=== PATIENT | female | born 1940 | race Caucasian/White ===

== ENCOUNTER 2020-01-16 07:34 | Outpatient (CLI) | payer MEDICARE, OTHER ==
[2020-01-16 14:41] LABS: INR-International Normal Ratio 0.9
[2020-01-16 15:04] LABS: #Basophils 0.1 thou/uL (0.0-0.2); #Eosinphils 0.1 thou/uL (0.0-0.7); #Lymphocytes 2.9 thou/uL (1.20-3.40); #Monocytes 0.8 thou/uL (0.11-0.59); #Neutrophils 3.8 thou/uL (1.40-6.50); %Basophils 1.1 % (0.0-1.0); %Eosinophils 0.9 % (0.0-10.0); %Monocytes 10.7 % (0.0-10.0); %Neutrophils 49.2 % (42.0-75.0); Hemoglobin 13.9 g/dL (12.0-16.0); Mean Corpuscular HGB CONC 34.4 g/dL (32.0-36.0); Mean Corpuscular Hemoglobin 35.3 pg (27.0-31.0); Mean Platelet Volume 7.3 fL (7.4-10.4); Platelet Count 324 thou/uL (130-400); RBC Distribution Width 10.8 % (11.5-14.5); Red Blood Cell (RBC) Count 3.93 mill/uL (4.20-5.40); White Blood Cell (WBC) Count 7.7 thou/uL (4.8-10.8)
[2020-01-16 15:23] LABS: Anion Gap 14 mmol/L (10-20); BUN (Urea Nitrogen) 18 mg/dL (9.8-20.1); Calc. Creatinine Clearance 0 mL/min (70-130); Calcium 9.4 mg/dL (7.8-10.44); Carbon Dioxide 25 mmol/L (23-31); Chloride 103 mmol/L (98-107); Estimated GFR-MDRD 64; Glucose 92 mg/dL (83-110); Potassium 4.5 mmol/L (3.5-5.1); Sodium 137 mmol/L (136-145)
[2020-01-16 16:04] LABS: Bacteria/HPF None Seen HPF (None Seen); Bilirubin Negative (Negative); Blood, Urine Negative (Negative); Clarity Clear (Clear); Glucose, Urine (Dipstick) Normal (Negative); Ketone, Urine Negative (Negative); Leukocyte 25 Leu/uL (Negative); Nitrite Negative (Negative); Protein, Urine (Dipstick) Negative (Neg-Trace); RBC/HPF 0-3 HPF (0-3); Specific Gravity, Urine 1.017 (1.002-1.036); Squamous Epithelial 0-3 HPF (0-3); Urobilinogen Normal mg/dL (Less than 2); WBC/HPF 0-3 HPF (0-3); pH, Urine 6.5 (5.0-9.0)
--- NOTE | 2020-01-16 18:13 | EKG ---
Test Reason : Blood Pressure : / mmHG Vent. Rate : 059 BPM Atrial Rate : 059 BPM P-R Int : 168 ms QRS Dur : 100 ms QT Int : 410 ms P-R-T Axes : 040 -18 040 degrees QTc Int : 405 ms Sinus bradycardia Cannot rule out Inferior infarct , age undetermined Abnormal ECG Confirmed by DR. Federico MCNAMARA ([id number]) on 01/16/2020 6:12:59 PM Referred By: RYAN Confirmed By:DR. Federico MCNAMARA
[2020-01-17 12:25] LABS: SARS-CoV-2 MS2 Positive; SARS-CoV-2 N Gene Negative; SARS-CoV-2 S Gene Negative; SARS-CoV-2 by NAA Not Detected (NotDetected); SARS-CoV-2 orf1ab Negative
== END 2020-01-16 07:35 | disposition home or self-care (01) ==
LOC: LABBT 07:34
PROVIDERS: ATTEND Orthopaedic Surgery
DX: Z01.818 Encounter for other preprocedural examination (principal); Z20.828 Contact with and (suspected) exposure to other viral communicable diseases; M16.12 Unilateral primary osteoarthritis, left hip
CPT/HCPCS: 80048; 81001; 85025; 85610; 87081; 93005; U0003; 87635; 93010

== ENCOUNTER 2020-01-16 10:30 | Inpatient (IN) | payer MEDICARE, OTHER ==
[2020-01-17 08:34] VITALS: BMI 29.2
[2020-01-21] MEDS ORDERED: Sodium Chloride 0.9% 100 ML ONE (08:39)
[2020-01-21] MEDS ORDERED: Vancomycin 1 GM/200 ML BAG ONE (08:39)
[2020-01-21] MEDS ORDERED: Levofloxacin 500 mg/D5W 100 ml Premix Bag ONE (08:39)
[2020-01-21] MEDS ORDERED: Tranexamic Acid 1,000 MG/10 ML VIAL ONE (08:39)
[2020-01-21] MEDS ORDERED: Acetaminophen 325 MG TAB PO PRN (09:25)
[2020-01-21] MEDS ORDERED: traMADol HCl 50 MG TAB PO PRN ×3 (09:25→10:15)
[2020-01-21] MEDS ORDERED: diphenhydrAMINE 25 MG CAP PO PRN (09:25)
[2020-01-21] MEDS ORDERED: Promethazine HCl 25 MG/ML VIAL IM PRN ×3 (09:25→11:52)
[2020-01-21] MEDS ORDERED: HYDROcodone/Acetaminophen 10/325 mg Tablet PO PRN ×2 (09:25)
[2020-01-21] MEDS ORDERED: Zolpidem Tartrate 5 MG TAB PO PRN ×2 (09:25→10:15)
[2020-01-21] MEDS ORDERED: Ondansetron PF 4 MG/2 ML Vial IVP PRN ×2 (09:25→10:15)
[2020-01-21] MEDS ORDERED: Diphenoxylate HCl/Atropine Tablet PO PRN (09:27)
[2020-01-21] MEDS ORDERED: Fentanyl 100 MCG/2 ML VIAL ONE ×2 (09:32→10:18)
[2020-01-21] MEDS ORDERED: Midazolam HCl 2 mg/2 ml Vial ONE (09:32)
[2020-01-21] MEDS ORDERED: Dexamethasone 20 MG/5 ML VIAL ONE (09:42)
[2020-01-21] MEDS ORDERED: Lidocaine 1.5% w/Epi 1:200K 30 ML VIAL (Epid Use) ONE (09:42)
[2020-01-21] MEDS ORDERED: Lidocaine 1% PF 5 ML VIAL ONE (09:42)
[2020-01-21] MEDS ORDERED: Rocuronium Bromide 10 MG/ML (10ML VIAL) ONE (09:42)
[2020-01-21] MEDS ORDERED: Ondansetron PF 4 MG/2 ML Vial ONE ×2 (09:42→12:42)
[2020-01-21] MEDS ORDERED: Ketorolac Tromethamine 30 MG/ML VIAL ONE (09:42)
[2020-01-21] MEDS ORDERED: PROPOFOL 200 MG/20 ML VIAL ONE (09:42)
[2020-01-21] MEDS ORDERED: Glycopyrrolate 0.2 MG/ML 5 ML SYRINGE ONE (09:42)
[2020-01-21] MEDS ORDERED: Bupivacaine/Epinephrine 0.25% 30 ML VIAL ONE (10:08)
[2020-01-21] MEDS ORDERED: Naloxone HCl 0.4 mg/ml Vial IVP PRN (10:15)
[2020-01-21] MEDS ORDERED: diphenhydrAMINE 50 MG/ML VIAL IVP PRN (10:15)
[2020-01-21] MEDS ORDERED: Promethazine HCl 25 MG SUPP PR PRN (10:15)
[2020-01-21] MEDS ORDERED: diphenhydrAMINE 50 MG/ML VIAL IM PRN (10:15)
[2020-01-21] MEDS ORDERED: Hydrocerin (Eucerin) Cream 120 gm Jar TOP PRN (10:15)
[2020-01-21] MEDS ORDERED: Naloxone HCl 0.4 mg/ml Vial IV PRN (10:15)
[2020-01-21] MEDS ORDERED: Bupivacaine 0.25% 10 ML VIAL EPIDURAL PRN (10:15)
[2020-01-21] MEDS ORDERED: Promethazine HCl 25 MG/ML VIAL SLOW IVP PRN (11:52)
[2020-01-21] MEDS ORDERED: HYDROmorphone 2 MG/ML VIAL SLOW IVP PRN (11:52)
[2020-01-21] MEDS: Sodium Chloride 0.9% 1,000 ML IV SCH ×2 (12:38→23:38)
[2020-01-21] MEDS: Ketorolac Tromethamine 30 MG/ML VIAL IVP SCH ×3 (12:39→23:34)
--- NOTE | 2020-01-21 13:21 | RAD ---
XR Hip Lt 2-3 View HISTORY: Postop total hip replacement COMPARISON: None. FINDINGS: There are recent postoperative changes of left total hip replacement in good position and a lignment. Soft tissue air is present.
[2020-01-21] MEDS: diphenhydrAMINE 25 MG CAP PO PRN ×3 (15:58→22:14)
--- OUTSIDE RECORDS SUMMARY | 2020-01-21 16:08 | XMS | Patient Health Record ---
:[address] 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 Problem Lumbar M54.16 Active 037493412 radiculopathy Problem Nicotine F17.200 Active 05584346 dependence, unspecified, uncomplicated Problem Primary M16.12 Active 707763259075898 osteoarthritis of left hip Problem Essential tremor G25.0 Active 853885031 Problem Benign positional H81.10 Active 433591126 vertigo Problem Primary localized M16.12 Active 449740364 osteoarthritis of left hip Problem Lumbar M47.816 Active 561942220 spondylosis ALLERGIES Allergen (clinical drug Drug/Non Drug Allergy Reaction Allergy Type Onset Date Status ingredient) documented on EMR Penicillin Unknown Drug Allergy Active ENCOUNTERS from 1940 to 2020-01-21 Encounter Location Date Provider Diagnosis [facility] [address] Jan, jR [address] [place] [address] IMMUNIZATIONS No Information SOCIAL HISTORY Tobacco Use: Social History Observation Description Date Details (start date - stop date) Current Smoker Sex Assigned At : Social History Observation Description Sex Assigned At Unknown Other Tobacco Use/Exposure Question Answer Notes Are you an other tobacco user? No Smoking Question Answer Notes Are you a: current smoker REASON FOR REFERRAL from 1940 to 2020-01-21 Reason ccm document Referring Provider First Name Rony Referring Provider Last Name Elena Referring Provider Specialty Orthopedic Surgery Referring Provider email [email or web address] Referred Provider [facility], Medical Records VITAL SIGNS from 1940 to 2020-01-21 Weight 170 lbs Jan, Height 64 in Jan, BMI 29.18 kg/m2 Jan, Heart Rate 66 /min Dec, Temperature 97.7 degrees Fahrenheit May, Oximetry 98 % May, Blood pressure systolic 124 mm Hg Dec, Blood pressure diastolic 81 mm Hg Dec, MEDICATIONS Medication SIG (Take, Route, Start Date End Date Status Frequency, Duration) Omeprazole 20 MG 1 capsules Orally bid Ac tive Zyrtec Allergy 10 MG 1 tablet Orally Once a day Active Simvastatin Active Trazodone HCl 50 MG 1-2 tablet at bedtime as Active needed Orally Once a day Mycophenolate Mofetil 500 MG 2 tablets Orally Twice a Active day Myrbetriq 25 MG Orally Active Calcium 600 MG 1 tablet Orally Twice a Ac tive day [place]bon[place] 3 1200 MG 1 capsule Orally Once a A ctive day Hydroxychloroquine Sulfate 200 TAKE ONE (1) TABLET (200 Active MG MG TOTAL) BY MOUTH 2 (TWO) TIMES DAILY (INDICATIONS_ CONTINUATION OF SAME INDICATION, RHEUMATOID ARTHRITIS). 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, tremors, low back pain-spinal stenosis, Lumbar MRI results, left hip chronic pain-Treated in Mario/nx, sores around mouth, Medications verified by reviewing bottles brought in by patient today MEDICAL (GENERAL) HISTORY Type Description Date Medical History polymyositis Medical History neurocardiogenic syncope Medical History GERD Medical History Dry eyes Medical History Insomnia Medical History hypercholesterolemia Medical History urinary incontinence Surgical History hysterectomy Surgical History oophorectomy Surgical History R knee surgery 2009 Surgical History bunionectomy R foot 2002 Goals Section No Information Health Concerns No Information MEDICAL EQUIPMENT No Information MENTAL STATUS No Information FUNCTIONAL STATUS No Information ASSESSMENTS Encounter Date Diagnosis Notes Jan, Nicotine dependence, unspecified, uncomp licated (ICD-10 - F17.200) Nov, Lumbar spondylosis (ICD-10 - M47.816) Apr, Essential tremor (ICD-10 - G25.0) Nov, Lumbar stenosis with neurogenic claudica tion (ICD-10 - M48.062) Nov, Primary localized osteoarthritis of left hip (ICD-10 - M16.12) May, 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 ) Dec, Foraminal stenosis of lumbar region (ICD -10 - M99.83) Nov, Foraminal stenosis of lumbar region (ICD -10 - M99.83) Nov, Nicotine dependence, unspecified, uncomp licated (ICD-10 - F17.200) Dec, Lumbar spondylosis (ICD-10 - M47.816) August, Primary osteoarthritis of left hip (ICD- 10 - M16.12) Oct, Foraminal stenosis of lumbar region (ICD -10 - M99.83) Nov, Primary localized osteoarthritis of left hip (ICD-10 - M16.12) Dec, Primary localized osteoarthritis of left hip (ICD-10 - M16.12) Nov, Acute lumbar radiculopathy (ICD-10 - M54 .10) Sep, Primary osteoarthritis of left hip (ICD- 10 - M16.12) Sep, Lumbar radiculopathy (ICD-10 - M54.16) Dec, Acute lumbar radiculopathy (ICD-10 - M54 .10) Nov, Primary osteoarthritis of left hip (ICD- 10 - M16.12) Oct, Acute lumbar radiculopathy (ICD-10 - M54 .10) Jan, Primary osteoarthritis of left hip (ICD- 10 - M16.12) Nov, Acute lumbar radiculopathy (ICD-10 - M54 .10) May, Impetigo (ICD-10 - L01.00) Apr, Benign positional vertigo (ICD-10 - H81. 10) August, Lumbar radiculopathy (ICD-10 - M54.16) Nov, Foraminal stenosis of lumbar region (ICD -10 - M99.83) Oct, Primary localized osteoarthritis of left hip (ICD-10 - M16.12) PLAN OF TREATMENT Treatment Notes Assessment Notes Clinical Notes Primary localized osteoarthritis of Patient Educated with: Matti ischarge left hip Instruct.pdf (Discharge Instruct.pdf) Nicotine dependence, unspecified, Counseled patient on tobac co uncomplicated cessation and the benefits of doing so during the pre- and post-operative period. Some of these benefits include better cardiac and pulmonary function, better bone and wound healing, decreased risk of osteoporosis, and decreased risk of post-operative infections. Encouraged the patient to follow up with their primary care physician for further tobacco cessation information and counseling. Essential tremor I discussed a referral to audiology to address the positional vertigo, but she did not feel it was significant adenopathy this point to pursue this. We will monitor the tremor and consider treatment options if it becomes more bothersome. Nicotine dependence, unspecified, Counseled patient on tobac co uncomplicated cessation and the benefits of doing so during the pre- and post-operative period. Some of these benefits include better cardiac and pulmonary function, better bone and wound healing, decreased risk of osteoporosis, and decreased risk of post-operative infections. Encouraged the patient to follow up with their primary care physician for further tobacco cessation information and counseling. Counseled patient on tobacco cessation and the benefits of doing so during the pre- and post-operative period. Some of these benefits include better cardiac and pulmonary function, better bone and wound healing, decreased risk of osteoporosis, and decreased risk of post-operative infections. Encouraged the patient to follow up with their primary care physician for further tobacco cessation information and counseling. Primary localized osteoarthritis of Patient Educated with: D ischarge left hip Instruct.pdf (Discharge Instruct.pdf) Patient Educated with: Discharge Instruct.pdf (Discharge Instruct.pdf) Primary localized osteoarthritis of Patient Educated with: D ischarge left hip Instruct.pdf (Discharge Instruct.pdf) Patient Educated with: Discharge Instruct.pdf (Discharge Instruct.pdf) Primary localized osteoarthritis of Patient Educated with: Matti ischarge left hip Instruct.pdf (Discharge Instruct.pdf) Patient Educated with: Discharge Instruct.pdf (Discharge Instruct.pdf) Primary osteoarthritis of left hip Discussed conservative ca re with the patient: NSAIDs, bracing, strengthening & stretching, weight reduction, injections. I informed the patient that the care home solution for their OA would be a joint replacement. The patient will begin taking a consistent anti-inflammatory and continue evaluating her hip pain. Due to several medications the patient is currently utilizing, she will need to meet [facility] Dr. 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 Follow-up as needed as symptoms persist or worsenWe discussed the risk of infection, stiffness, nerve or blood vessel damage. Infection may be treated with surgery and antibiotics or full revision. The risk of fracture and dislocation was discussed. is a possibility for blood clot or infection. Leg length inequality can occur. Informed consent was given. Lumbar radiculopathy Patient with mild to moderate stenosis and lumbar degenerative disc disease. She's not hurting today so isolating her pain source is difficult but I suspect she does have some intermittent radicular symptoms. Hold on any interventional treatment. I did provide her a copy of home back exercises and stretches. She may follow-up as needed. Primary osteoarthritis of left hip Discussed conservative ca re with the patient: NSAIDs, bracing, strengthening & stretching, weight reduction, injections. I informed the patient that the care home solution for their OA would be a joint replacement. The patient will begin taking a consistent anti-inflammatory and continue evaluating her hip pain. Due to several medications the patient is currently utilizing, she will need to meet [facility] Dr. 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 Follow-up as needed as symptoms persist or worsenWe discussed the risk of infection, stiffness, nerve or blood vessel damage. Infection may be treated with surgery and antibiotics or full revision. The risk of fracture and dislocation was discussed. is a possibility for blood clot or infection. Leg length inequality can occur. Informed consent was given. Lumbar radiculopathy Schedule MRI of the lumbar spine. The patient will be called with results. Treatment Notes Test Name Order Date XR Hip Lt 2-3 View 2020-01-21 XR Hip Lt 2-3 View 2020-01-21 Referrals Referral Date Details left hip pain, Rony aPrker, [address], [place], [address], 2016-09-01 2016-09-01, MRI L-Spine [facility] 09/01/2016 2016-09-28 2016-09-28, low back pain-sp inal stenosis, Adal Rodriguez, [address], [place], [place], [address], 2019-11-27 2019-11-27, left hip arthro rina. evaluate for replacement left side, Rony Parker, [address], [place], [address], ccm document Next Appt Details Provider Name:Adal Rodriguez, 03-09 09:40:00 AM, [address] [facility], [place], [address], Insurance Providers Payer Name Payer Address Payer Insured Patient Coverage Cover age Phone Name Relationship to Start Date End Date Insured [employer] [phone] Ole,Bar self [employer] [place] [address] [employer] [id number] Medicare [address] ATTN [phone] Handy,Bar self [employer] [id number] [place] [address]
--- NOTE | 2020-01-21 17:35 | OP ---
DATE OF PROCEDURE: 01/21/2020 This is Bola Mejia PA-C dictating a report for Rony Parker MD. PREOPERATIVE DIAGNOSIS: End-stage bicompartmental osteoarthritis, left hip. POSTOPERATIVE DIAGNOSIS: End-stage bicompartmental osteoarthritis, left hip. PROCEDURE PERFORMED: Press-fit left total hip arthroplasty. COMMERCIAL ESCROW ASSISTANT: Bola Mejia PA-C. ANESTHESIA: General via endotracheal tube augmented with indwelling epidural. COMPONENTS USED: [employer] Trident II press-fit 52 mm acetabular shell with an Accolade II size 4 press-fit hip stem, 10 degree polyethylene fixed bearing insert and a ceramic 36 mm diameter V40 femoral head. FINDINGS: End-stage severe degenerative bicompartmental disease, [id number]-lm-ydka arthrosis, periarticular osteophyte formation, large serous effusion, hypertrophic synovium, and changes consistent with chronic degenerative bicompartmental osteoarthritis. DRAINS: None. SPECIMENS: None. COMPLICATIONS: None. COUNTS: Correct. INPUT: 1000 mL crystalloid. OUTPUT: 300 mL of clear yellow urine. INDICATION FOR SURGERY: Maddie is a 79-year-old female, who has had left hip, groin, and thigh pain and problem with standing and walking for the last 5 to 7 years. She has failed conservative management, and elected to proceed with total hip arthroplasty as a definitive treatment of her pain. PROCEDURE IN DETAIL: After informed consent was obtained in the preoperative holding area, the patient was taken to the operative suite where general anesthesia was induced. The patient was then positioned in the lateral decubitus position. The hip was then prepped and draped in usual sterile fashion. The patient received preoperative antibiotics. Prior to incision, time-out was called and all members of the surgical team agreed upon site, surgeon, and patient. After this, a longitudinal incision was made directly over the trochanter, noted by palpation extending 2 fingerbreadths above and below the trochanter. The deeper subcutaneous layer was undermined with Bovie electrocautery. The iliotibial band was encountered and incised sharply and the plane below this was developed bluntly. A Charnley retractor was placed to hold this opened. The lateral aspect of the trochanter and the abductor muscles were encountered and then reflected anteriorly off the trochanter using Bovie electrocautery. Once this was completed, the anterior capsule was then encountered and identified and copious capsulotomy was carried out, exposing the femoral neck and head. Dislocation maneuver was then performed and an in situ provisional neck cut was then made using the oscillating saw. Attention was then turned to acetabular preparation. Sequential reaming was carried out up to the appropriate diameter and a trial was then malleted into place with good firm resistance and no pullout. The permanent acetabular shell was then malleted squarely into place, as was the appropriate liner. Once completed, the wound was copiously irrigated and attention was then turned to femoral preparation. Flexion and external rotation were performed of the exposed thigh and femoral elevators were then placed at the proximal aspect of the wound. Canal finder was used to establish the length of the canal and sequential reaming was carried out, followed by broaching. Once the appropriate stability was established with the trial broaches with flexion, extension and rotational stability, we did trial with neutral and 2 mm offset incremental necks. Once the appropriate size was decided upon, with good stability noted with flexion, extension, internal and external rotation and shuck being negative, we removed the femoral trial broach and malletted into place the permanent prosthesis with good firm fit, which was also stable to rotation. Again, the hip felt very stable to flexion, extension, internal and external rotation. Leg lengths appeared near anatomic clinically and we were quite happy with prosthesis placement. Copious irrigation was then carried out through the entirety of the wound. Primary closure of the abductors was accomplished with interrupted #2 Vicryl [id number] stitches and the IT band was then closed with interrupted #2 Vicryl, oversewn with a #2 running barbed Quill stitch. Subcutaneous fascia was closed with running barbed Quill stitch and a subcuticular Monocryl barbed Quill stitch was used for skin closure and augmented with skin cement. A sterile dressing was applied. The procedure was terminated without any complication. All counts were correct. The patient was awakened in the operative suite and taken to the recovery room in stable condition. The medication assistant surgeon helped throughout the procedure by positioning the patient, stabilizing the limb, holding retractors, aligning the prosthesis, and closure of procedure site. The medication assistant/co-surgeon was present through the entire procedure and was responsible for providing exposure, tissue retraction and any necessary limb or tissue manipulation required to obtain necessary reduction or hardware placement. The medication assistant/co-surgeon also provided bleeding control, tissue closure, and suturing in conjunction with the primary surgeon. Job ID: [id number]
[2020-01-21] MEDS ORDERED: Vancomycin HCl 1.5 GM in Sodium Chloride 0.9% 250 ML 300 ML IVPB SCH (18:00)
[2020-01-21] MEDS ORDERED: Vancomycin 1.5 GRAM/300 ML BAG 1.5 GM in Premix Bag 1 BAG IVPB SCH (18:00)
[2020-01-21] MEDS: Aspirin 81 mg Enteric Coated Tablet PO SCH (20:59)
[2020-01-21] MEDS: Atorvastatin Calcium 10 MG TAB PO SCH (21:00)
[2020-01-21] MEDS: Hydroxychloroquine Sulfate 200 MG TAB PO SCH (21:05)
[2020-01-21] MEDS: traZODone HCl 50 MG TAB PO SCH (22:08)
[2020-01-22] MEDS: fentaNYL Citrate/PF 500 MCG, Bupivacaine 10 ML in Sodium Chloride 0.9% 80 ML EPIDURAL SCH ×2 (05:13→21:49)
[2020-01-22] MEDS: Ketorolac Tromethamine 30 MG/ML VIAL IVP SCH ×4 (05:14→23:20)
[2020-01-22 05:47] LABS: Hemoglobin 11.9 g/dL (12.0-16.0); Mean Corpuscular HGB CONC 33.7 g/dL (32.0-36.0); Mean Corpuscular Hemoglobin 34.9 pg (27.0-31.0); Mean Platelet Volume 7.4 fL (7.4-10.4); Platelet Count 250 thou/uL (130-400); RBC Distribution Width 10.8 % (11.5-14.5); Red Blood Cell (RBC) Count 3.42 mill/uL (4.20-5.40); White Blood Cell (WBC) Count 12.3 thou/uL (4.8-10.8)
[2020-01-22] MEDS: Sodium Chloride 0.9% 1,000 ML IV SCH ×2 (06:54→15:42)
[2020-01-22] MEDS: Aspirin 81 mg Enteric Coated Tablet PO SCH ×2 (08:52→21:49)
[2020-01-22] MEDS: Ferrous Gluconate 324 MG TAB PO SCH ×2 (08:52→21:48)
[2020-01-22] MEDS: Multivitamin W/ Minerals 1 TAB PO SCH (08:52)
[2020-01-22] MEDS: Senokot S 8.6-50 MG TAB PO SCH ×2 (08:55→21:48)
[2020-01-22] MEDS: hydrOXYzine 25 MG TAB PO SCH ×3 (10:49→23:20)
[2020-01-22] MEDS: Hydroxychloroquine Sulfate 200 MG TAB PO SCH ×2 (11:47→21:48)
[2020-01-22] MEDS: traZODone HCl 50 MG TAB PO SCH (21:48)
[2020-01-22] MEDS: Atorvastatin Calcium 10 MG TAB PO SCH (21:49)
[2020-01-23] MEDS: Sodium Chloride 0.9% 1,000 ML IV SCH ×3 (00:43→17:50)
[2020-01-23] MEDS: hydrOXYzine 25 MG TAB PO SCH ×4 (05:39→22:45)
[2020-01-23] MEDS: Ketorolac Tromethamine 30 MG/ML VIAL IVP SCH (05:39)
[2020-01-23] MEDS ORDERED: chlorproMAZINE HCl 25 MG TAB PO PRN (07:36)
[2020-01-23] MEDS: Multivitamin W/ Minerals 1 TAB PO SCH (10:08)
[2020-01-23] MEDS: Senokot S 8.6-50 MG TAB PO SCH ×2 (10:08→21:14)
[2020-01-23] MEDS: Ferrous Gluconate 324 MG TAB PO SCH ×2 (10:09→21:14)
[2020-01-23] MEDS: Aspirin 81 mg Enteric Coated Tablet PO SCH ×2 (10:09→21:14)
[2020-01-23] MEDS: Hydroxychloroquine Sulfate 200 MG TAB PO SCH ×2 (10:09→21:14)
[2020-01-23] MEDS: HYDROcodone/Acetaminophen 5/325 mg Tablet PO PRN ×3 (12:11→22:45)
--- NOTE | 2020-01-23 13:50 | PRG ---
DATE OF SERVICE: 01/23/2020 SUBJECTIVE: Maddie is a 79-year-old female, postop day 2 from a left total hip arthroplasty. She has had some nausea this morning with dry heaves, but a nonproductive emesis. She admits to little bit of abdominal discomfort, but nothing out of the ordinary. She denies any shortness of breath. She did well yesterday with physical therapy, ambulating 160 feet in the morning and 180 feet in the evening without any problem. Her last hemoglobin and hematocrit yesterday were 11.9 and 35.4, and her blood pressure has been a little elevated since about 9:00 this morning. Otherwise, the patient describes feeling weak and thready and low energy and washed out. PHYSICAL EXAMINATION: VITAL SIGNS: Temperature is 98.7, but has been reported to be 99 and even 100.1, subjectively this is yet to be documented, but the nurse gave me a verbal on it. Pulse 85, respiratory rate 16, O2 saturation is 92% on room air, blood pressure 147/62. GENERAL: She is alert, responsive, appropriate. She does look a little somnolent, but she is responsive and appropriate and conversive with examiner, but she does not look very spry. She is grossly nonfocal. CHEST: Clear to auscultation. No wheezes or rales audible. ABDOMEN: She has diffuse discomfort with palpation. She has a little tympany to percussion, but no focal rebound tenderness, no peritoneal findings. Just vague discomfort with palpation, but she has bowel sounds that are positive. No tinkling. IMPRESSION: 1. A 79-year-old female, postoperative day 2, left total hip arthroplasty. 2. Malaise, but without a focus to treat at this point. 3. Elevated temperature. PLAN: 1. I believe she received some Zofran. I have given her some Thorazine for the hiccups which were bothering her this morning. 2. No plans for discharge currently due to the nausea and the malaise. 3. The patient will initiate incentive spirometry, which she has not been very compliant with at this point and has not been pushed. 4. Give consideration to atelectasis, which may be symptomatic, but this strikes me as more of a GI issue with an early ileus. 5. Symptomatic treatment, Tylenol for elevated temperatures and continue to observe the patient, monitor for pain and/or blood loss. We will recheck later this afternoon as well as in the morning to see how she is doing. Probable discharge tomorrow if she clears. Job ID: [id number]
--- NOTE | 2020-01-23 14:29 | RAD ---
RADIOGRAPH CHEST 1 VIEW: DATE: 01/23/2020 TIME: 2:14 PM HISTORY: 79-year-old female with dyspnea. "Possible atelectasis" COMPARISON: none FINDINGS: There are reticular densities at the bilateral lung bases, left greater than right. No consolidation, cardiomegaly, or pneumothorax. IMPRESSION: Nonspecific reticular interstitial densities at the bilateral lung bases
--- NOTE | 2020-01-23 14:35 | RAD ---
SUPINE ABDOMEN: Date: 01/23/2020 INDICATION: Question ileus. FINDINGS: Scattered stool and gas throughout the colon with prominent stool in the transverse and left colon ma y indicate constipation. Some scattered small bowel gas without evidence of small bowel dilatation. N o mass effect or abnormal calcification. IMPRESSION: Prominent stool throughout the colon. Unremarkable small bowel gas pattern. POS: AH
[2020-01-23 14:46] LABS: #Basophils 0.1 thou/uL (0.0-0.2); #Eosinphils 0.1 thou/uL (0.0-0.7); #Lymphocytes 1.7 thou/uL (1.20-3.40); #Monocytes 1.1 thou/uL (0.11-0.59); #Neutrophils 8.3 thou/uL (1.40-6.50); %Basophils 0.5 % (0.0-1.0); %Eosinophils 0.6 % (0.0-10.0); %Lymphocytes 14.9 % (21.0-51.0); %Monocytes 10.1 % (0.0-10.0); %Neutrophils 73.9 % (42.0-75.0); Hemoglobin 9.8 g/dL (12.0-16.0); Mean Corpuscular HGB CONC 34.5 g/dL (32.0-36.0); Mean Corpuscular Hemoglobin 34.8 pg (27.0-31.0); Mean Platelet Volume 6.8 fL (7.4-10.4); Platelet Count 210 thou/uL (130-400); RBC Distribution Width 10.6 % (11.5-14.5); Red Blood Cell (RBC) Count 2.82 mill/uL (4.20-5.40); White Blood Cell (WBC) Count 11.2 thou/uL (4.8-10.8)
[2020-01-23 15:01] LABS: Lactic Acid 0.6 mmol/L (0.5-2.2)
[2020-01-23 15:23] LABS: Anion Gap 11 mmol/L (10-20); BUN (Urea Nitrogen) 15 mg/dL (9.8-20.1); Calc. Creatinine Clearance 71 mL/min (70-130); Calcium 8.4 mg/dL (7.8-10.44); Carbon Dioxide 22 mmol/L (23-31); Chloride 98 mmol/L (98-107); Estimated GFR-MDRD 69; Glucose 118 mg/dL (83-110); Potassium 3.7 mmol/L (3.5-5.1); Sodium 127 mmol/L (136-145)
--- NOTE | 2020-01-23 18:08 | PDOC.HHP ---
Hospitalist HPI - History of Present Illness Orthopedic surgery consult for fever History of Present Illness: Ms. Handy is a 79-year-old female with a past medical history of hyperlipidemia, GERD, skin cancer, polymyositis, vasovagal syncope, osteoarthritis who was admitted to the hospital for a left hip replacement which was performed on 01/21/2020. Hospitalist team was consulted for patient's low-grade fever. Patient reports that the preop prior 2 days immediately after her hip replacement she has felt perfectly fine however this morning she reports she felt malaise, nauseous, with subjective fevers. Nursing staff reports a low-grade fever to 100.1. Patient has not had a bowel movement since surgery however has been passing gas. She reports mild diffuse abdominal pain that is crampy in nature. She denies vomiting. She reports minimal use of her incentive spirometer. She denies chest pain, shortness of breath, palpitations. She denies numbness or tingling. She denies swelling to her lower extremities. Hospitalist ROS - Review of Systems Constitutional: reports: fever, malaise. denies: chills, sweats, weakness, other Eyes: denies: pain, vision change, conjunctivae inflammation, eyelid inflammation, redness, other ENT: denies: ear pain, ear discharge, nose pain, nose discharge, nose congestion, mouth pain, mouth swelling, throat pain, throat swelling, other Respiratory: denies: cough, dry, shortness of breath, hemoptysis, SOB with excertion, pleuritic pain, sputum, wheezing, other Cardiovascular: denies: chest pain, palpitations, orthopnea, paroxysmal noc. dyspnea, edema, light headedness, other Gastrointestinal: reports: nausea. denies: vomiting, abdominal pain, diarrhea, constipation, melena, hematochezia, other Genitourinary: denies: dysuria, frequency, incontinence, hematuria, retention, other Musculoskeletal: denies: neck pain, shoulder pain, arm pain, back pain, hand pain, leg pain, foot pain, other Skin: denies: rash, lesions, ellen, bruising, other Neurological: denies: weakness, numbness, incoordination, change in speech, confusion, seizures, other - Medication Medications: Active Medications Generic Name Dose Route Start Last Admin Trade Name Freq PRN Reason Stop Dose Admin Hydrocodone Bitart/Acetaminophen 1 tab 01/21/20 10:15 01/23/20 16:47 Hydrocodone/Acetaminophen 5/325 Mg Tablet PO 1 tab Q4H PRN Administration Mild Pain 1-3 Aspirin 81 mg 01/21/20 21:00 01/23/20 10:09 Aspirin 81 Mg Enteric Coated Tablet PO 81 mg BID JOSE Administration Atorvastatin Calcium 10 mg 01/21/20 21:00 01/22/20 21:49 Atorvastatin Calcium 10 Mg Tab PO 10 mg HS JOSE Administration Chlorpromazine HCl 25 mg 01/23/20 07:36 01/23/20 12:11 Chlorpromazine Hcl 25 Mg Tab PO 25 mg Q4H PRN Administration Restlessness Diphenhydramine HCl 25 mg 01/21/20 10:15 01/21/20 22:14 Diphenhydramine 25 Mg Cap PO 25 mg Q3H PRN Administration Itching Ferrous Gluconate 324 mg 01/22/20 09:00 01/23/20 10:09 Ferrous Gluconate 324 Mg Tab PO 324 mg BID JOSE Administration Hydroxychloroquine Sulfate 200 mg 01/21/20 21:00 01/23/20 10:09 Hydroxychloroquine Sulfate 200 Mg Tab PO 200 mg BID JOSE Administration Hydroxyzine HCl 25 mg 01/22/20 12:00 01/23/20 12:38 Hydroxyzine 25 Mg Tab PO Not Given Q6HR JOSE Fentanyl Citrate 500 mcg/ 100 mls @ 6 mls/hr 01/21/20 10:15 01/22/20 21:49 Bupivacaine HCl 10 ml/ Sodium EPIDURAL 100 mls Chloride INF JOSE Administration Sodium Chloride 1,000 mls @ 75 mls/hr 01/23/20 15:45 01/23/20 16:48 Normal Saline 0.9% IV 1,000 mls .[id number] JOSE Administration Iron/Minerals/Multivitamins 1 tab 01/22/20 09:00 01/23/20 10:08 Multivitamin W/ Minerals 1 Tab PO 1 tab DAILY JOSE Administration Mirabegron 25 mg 01/21/20 21:00 01/22/20 21:48 Mirabegron Er 25 Mg Tab PO 25 mg QPM JOSE Administration Senna/Docusate Sodium 2 tab 01/22/20 09:00 01/23/20 10:08 Senokot S 8.6-50 Mg Tab PO 2 tab BID JOSE Administration Sertraline HCl 100 mg 01/22/20 09:00 01/23/20 10:08 Sertraline Hcl 100 Mg Tab PO 100 mg QAM JOSE Administration Trazodone HCl 100 mg 01/21/20 21:00 01/22/20 21:48 Trazodone Hcl 50 Mg Tab PO 100 mg HS JOSE Administration Hospitalist History - Past Medical History Other Medical History: Past medical history includes GERD Hyperlipidemia Skin cancer Osteoarthritis Anxiety/depression Polymyositis Vasovagal syncope - Past Surgical History Other Surgical History: Past surgical history includes left total knee replacement Hysterectomy Oophorectomy Knee surgery - Family History Other Family History: Reports family history of CVA in her grandmother - Social History Smoking Status: Current every day smoker Tobacco Type: cigarettes Alcohol: reports: None Drugs: reports: none Living Situation: With Family Activity level: independent ambulation - Exam General Appearance: NAD, awake alert Eye: PERRL, anicteric sclera ENT: normocephalic atraumatic, no oropharyngeal lesions, moist mucosa Neck: supple, symmetric, no JVD, no thyromegaly, no lymphadenopathy, no carotid bruit Heart: RRR, no murmur, no gallops, no rubs, normal peripheral pulses Respiratory: CTAB, no wheezes, no rales, no ronchi, normal chest expansion, no tachypnea, normal percussion Gastrointestinal: soft, non-tender, non-distended, normal bowel sounds, no palpable masses, no hepatomegaly, no splenomegaly, no bruit Extremities: no cyanosis, no clubbing, no edema Skin: normal turgor, no lesions, no rashes Neurological: cranial nerve grossly intact, normal sensation to touch, no weakness, no focal deficits, no new deficit Musculoskeletal: normal tone, normal strength, no muscle wasting Hospitalist Results - Labs Result Diagrams: 01/23/20 14:37 01/23/20 14:37 Lab results: WBC 11.2 thou/uL (4.8-10.8) H 01/23/20 14:37 Hgb 9.8 g/dL (12.0-16.0) L 01/23/20 14:37 Hct 28.5 % (36.0-47.0) L 01/23/20 14:37 MCV 101.0 fL (78.0-98.0) H 01/23/20 14:37 Plt Count 210 thou/uL (130-400) 01/23/20 14:37 Neutrophils % 73.9 % (42.0-75.0) 01/23/20 14:37 Sodium 127 mmol/L (136-145) L 01/23/20 14:37 Potassium 3.7 mmol/L (3.5-5.1) 01/23/20 14:37 Chloride 98 mmol/L (98-107) 01/23/20 14:37 Carbon Dioxide 22 mmol/L (23-31) L 01/23/20 14:37 BUN 15 mg/dL (9.8-20.1) 01/23/20 14:37 Creatinine 0.81 mg/dL (0.6-1.1) 01/23/20 14:37 Glucose 118 mg/dL (83-110) H 01/23/20 14:37 Lactic Acid 0.6 mmol/L (0.5-2.2) 01/23/20 14:37 Calcium 8.4 mg/dL (7.8-10.44) 01/23/20 14:37 Hospitalist H&P A/P - Plan Plan: Subjective fever Ms. Handy is a 79-year-old female with a past medical history of GERD, hyperlipidemia, polymyositis, vasovagal syncope who was admitted for a left total hip replacement which was performed on 01/21/2020. Patient is now postop day 2 and reports malaise, subjective fevers, and nausea. Low suspicion for infectious process at this time but will pursue chest x-ray, UA, CBC, BMP, lactic acid. Will remove Osman catheter, and send for UA. No suspicion for DVT at this time as patient is saturating well on room air denies any shortness of breath and has no lower extremity swelling. Likely beginnings of early atelectasis. Plan Chest x-ray CBC, BMP, lactic acid -Trend fever curve, WBC -Encourage incentive spirometry Abdominal pain Patient describes mild diffuse abdominal pain associated with nausea. Patient has not had a bowel movement since surgery however has been passing flatus. Will obtain KUB to rule out ileus. Plan KUB Bowel regimen Zofran for nausea -Pantoprazole Serial abdominal exams Hyponatremia Mild hyponatremia. Sodium 127. Likely secondary to hypovolemia. Will start gentle IV fluids at 75 mL's per hour with every 6 hour sodium checks. Patient with no neurologic symptoms at this time. Plan -Correct sodium not to exceed 8 mEq in 24 hours Every 6 hours sodium checks Hyperlipidemia Continue home statin Polymyositis Patient takes CellCept for her polymyositis. As well as hydroxychloroquine. Her CellCept was held 1 week prior, and will continue to be held 2 weeks after surgery per patient's yarn inspector. Plan Hold CellCept Continue hydroxychloroquine Anxiety/depression History of anxiety/depression. Stable at this time. We will continue home Zoloft and hydroxyzine PRN. Status post left total hip replacement Patient underwent left total hip replacement on 01/21/2020. Now postop day 2. Orthopedics orthopedics team primary. DVT prophylaxis: Per orthopedic team Full code Case discussed with attending physician Dr. Alonzo
[2020-01-23 19:26] LABS: Sodium 126 mmol/L (136-145)
[2020-01-23] MEDS: Atorvastatin Calcium 10 MG TAB PO SCH (21:14)
[2020-01-23] MEDS: traZODone HCl 50 MG TAB PO SCH (21:14)
[2020-01-24 00:54] LABS: Sodium 132 mmol/L (136-145)
[2020-01-24 01:42] LABS: Bilirubin Negative (Negative); Blood, Urine Negative (Negative); Clarity Turbid (Clear); Glucose, Urine (Dipstick) Normal (Negative); Ketone, Urine Negative (Negative); Leukocyte 25 Leu/uL (Negative); Nitrite Negative (Negative); Protein, Urine (Dipstick) Negative (Neg-Trace); RBC/HPF 0-3 HPF (0-3); Specific Gravity, Urine 1.008 (1.002-1.036); Squamous Epithelial 0-3 HPF (0-3); Urobilinogen Normal mg/dL (Less than 2)
[2020-01-24 01:43] LABS: Bacteria/HPF 1+ HPF (None Seen)
[2020-01-24 01:44] LABS: Urine Culture Reflex Yes Yes
[2020-01-24] MEDS: Sodium Chloride 0.9% 1,000 ML IV SCH (04:19)
[2020-01-24] MEDS: HYDROcodone/Acetaminophen 5/325 mg Tablet PO PRN ×4 (04:25→20:09)
[2020-01-24 05:15] LABS: #Basophils 0.1 thou/uL (0.0-0.2); #Eosinphils 0.2 thou/uL (0.0-0.7); #Lymphocytes 2.2 thou/uL (1.20-3.40); #Neutrophils 5.6 thou/uL (1.40-6.50); %Basophils 0.6 % (0.0-1.0); %Lymphocytes 24.2 % (21.0-51.0); %Monocytes 10.8 % (0.0-10.0); %Neutrophils 62.4 % (42.0-75.0); Hemoglobin 9.5 g/dL (12.0-16.0); Mean Corpuscular HGB CONC 34.6 g/dL (32.0-36.0); Mean Corpuscular Hemoglobin 35.1 pg (27.0-31.0); Mean Platelet Volume 7.1 fL (7.4-10.4); Platelet Count 201 thou/uL (130-400); RBC Distribution Width 10.4 % (11.5-14.5); White Blood Cell (WBC) Count 8.9 thou/uL (4.8-10.8)
[2020-01-24 05:38] LABS: Anion Gap 12 mmol/L (10-20); BUN (Urea Nitrogen) 12 mg/dL (9.8-20.1); Calc. Creatinine Clearance 81 mL/min (70-130); Calcium 8.3 mg/dL (7.8-10.44); Carbon Dioxide 23 mmol/L (23-31); Chloride 103 mmol/L (98-107); Estimated GFR-MDRD 80; Glucose 113 mg/dL (83-110); Potassium 3.6 mmol/L (3.5-5.1); Sodium 134 mmol/L (136-145)
[2020-01-24] MEDS: hydrOXYzine 25 MG TAB PO SCH ×3 (06:13→17:51)
[2020-01-24 07:13] LABS: Sodium 133 mmol/L (136-145)
[2020-01-24] MEDS: Aspirin 81 mg Enteric Coated Tablet PO SCH ×2 (08:54→20:08)
[2020-01-24] MEDS: Senokot S 8.6-50 MG TAB PO SCH ×2 (08:55→20:09)
[2020-01-24] MEDS: Ferrous Gluconate 324 MG TAB PO SCH ×2 (08:55→20:09)
[2020-01-24] MEDS: Multivitamin W/ Minerals 1 TAB PO SCH (08:55)
[2020-01-24] MEDS ORDERED: Fosfomycin 3 GM/Packet PO SCH (09:00)
--- NOTE | 2020-01-24 09:08 | PDOC.HOSPP ---
- Subjective Encounter Date: 01/24/20 Encounter Time: 09:11 Subjective: No overnight events. Patient reports that she feels slightly better today. Still endorses fullness/pressure in her lower abdomen. Denies dysuria. Denies shortness of breath, chest pain, palpitations. Reports her nausea has improved. Chart and medications reviewed. - Objective Vital Signs & Weight: Vital Signs (12 hours) Temp Pulse Resp BP Pulse Ox 01/24/20 07:34 97.9 F 70 16 126/73 94 L 01/24/20 04:26 98.1 F 68 14 106/61 93 L Weight Admit Weight 170 lb Weight 170 lb I&O: 01/23/20 01/24/20 01/25/20 06:59 06:59 06:59 Intake Total 3201 1742 Output Total 3175 750 Balance 26 992 Result Diagrams: 01/24/20 04:51 01/24/20 06:33 Hospitalist ROS - Review of Systems Constitutional: reports: malaise. denies: fever, chills, sweats, weakness, other Eyes: denies: vision change Respiratory: denies: cough, shortness of breath, SOB with excertion Cardiovascular: denies: chest pain, palpitations, orthopnea Gastrointestinal: reports: abdominal pain. denies: nausea, vomiting Genitourinary: reports: other (Bladder fullness) - Medication Medications: Active Medications Generic Name Dose Route Start Last Admin Trade Name Freq PRN Reason Stop Dose Admin Hydrocodone Bitart/Acetaminophen 1 tab 01/21/20 10:15 01/23/20 16:47 Hydrocodone/Acetaminophen 5/325 Mg Tablet PO 1 tab Q4H PRN Administration Mild Pain 1-3 Hydrocodone Bitart/Acetaminophen 2 tab 01/21/20 10:15 01/24/20 04:25 Hydrocodone/Acetaminophen 5/325 Mg Tablet PO 2 tab Q4H PRN Administration For Moderate Pain 4-6 Aspirin 81 mg 01/21/20 21:00 01/24/20 08:54 Aspirin 81 Mg Enteric Coated Tablet PO 81 mg BID JOSE Administration Atorvastatin Calcium 10 mg 01/21/20 21:00 01/23/20 21:14 Atorvastatin Calcium 10 Mg Tab PO 10 mg HS JOSE Administration Chlorpromazine HCl 25 mg 01/23/20 07:36 01/23/20 12:11 Chlorpromazine Hcl 25 Mg Tab PO 25 mg Q4H PRN Administration Restlessness Diphenhydramine HCl 25 mg 01/21/20 10:15 01/21/20 22:14 Diphenhydramine 25 Mg Cap PO 25 mg Q3H PRN Administration Itching Ferrous Gluconate 324 mg 01/22/20 09:00 01/24/20 08:55 Ferrous Gluconate 324 Mg Tab PO 324 mg BID JOSE Administration Hydroxychloroquine Sulfate 200 mg 01/21/20 21:00 01/23/20 21:14 Hydroxychloroquine Sulfate 200 Mg Tab PO 200 mg BID JOSE Administration Hydroxyzine HCl 25 mg 01/22/20 12:00 01/24/20 06:13 Hydroxyzine 25 Mg Tab PO Not Given Q6HR JOSE Fentanyl Citrate 500 mcg/ 100 mls @ 6 mls/hr 01/21/20 10:15 01/22/20 21:49 Bupivacaine HCl 10 ml/ Sodium EPIDURAL 100 mls Chloride INF JOSE Administration Iron/Minerals/Multivitamins 1 tab 01/22/20 09:00 01/24/20 08:55 Multivitamin W/ Minerals 1 Tab PO 1 tab DAILY JOSE Administration Mirabegron 25 mg 01/21/20 21:00 01/23/20 21:14 Mirabegron Er 25 Mg Tab PO 25 mg QPM JOSE Administration Ondansetron HCl 4 mg 01/21/20 10:15 01/24/20 04:19 Ondansetron Pf 4 Mg/2 Ml Vial IVP 4 mg Q6H PRN Administration Nausea/Vomiting Pantoprazole Sodium 40 mg 01/24/20 09:00 01/24/20 08:55 Pantoprazole 40 Mg Tab PO 40 mg DAILY JOSE Administration Senna/Docusate Sodium 2 tab 01/22/20 09:00 01/24/20 08:55 Senokot S 8.6-50 Mg Tab PO 2 tab BID JOSE Administration Sertraline HCl 100 mg 01/22/20 09:00 01/24/20 08:55 Sertraline Hcl 100 Mg Tab PO 100 mg QAM JOSE Administration Trazodone HCl 100 mg 01/21/20 21:00 01/23/20 21:14 Trazodone Hcl 50 Mg Tab PO 100 mg HS JOSE Administration - Exam General Appearance: NAD, awake alert Eye: anicteric sclera ENT: normocephalic atraumatic, no oropharyngeal lesions Neck: supple, symmetric, no JVD, no thyromegaly, no lymphadenopathy, no carotid bruit Heart: RRR, no murmur, no gallops, no rubs, normal peripheral pulses Respiratory: CTAB, no wheezes, no rales, no ronchi, normal chest expansion, no tachypnea, normal percussion Gastrointestinal: soft, non-tender, non-distended, normal bowel sounds, no palpable masses, no hepatomegaly, no splenomegaly, no bruit Extremities: no cyanosis, no clubbing, no edema Skin: normal turgor, no lesions, no rashes Neurological: normal sensation to touch, no weakness, no focal deficits, no new deficit Musculoskeletal: normal tone, normal strength, no muscle wasting Psychiatric: normal affect, normal behavior, A&O x 3 Hosp A/P - Plan Urinary Tract Infection Pt with subjective fever, mailaise, and mild lower abdominal fullness/pressure. Pt had pepe catheter in place, which was removed on 01/22. Clean catch urine specimen was obtained and UA showed Leukocyte esterase positive, 5 WBCs, 1+ bacteria. Given pt's symptoms and postive UA, will start on Keflex 500 mg PO BID for 5 days. Urine Cx pending. Plan -Keflex 500 mg PO BID for 5 days -Follow Urine Cx Subjective fever Ms. Handy is a 79-year-old female with a past medical history of GERD, hyperlipidemia, polymyositis, vasovagal syncope who was admitted for a left total hip replacement which was performed on 01/21/2020. On POD# 2 reported malaise, subjective fevers, and nausea. Now POD #3. Patient has remained afebrile. WBC 8.9. Lactic acid 0.6. CXR with question of faint atelectasis. Will continue to encourage IS and ambulation. Plan -Trend fever curve, WBC -Encourage incentive spirometry Abdominal Pain Patient initially described mild diffuse abdominal pain associated with nausea. Patient has not had a bowel movement since surgery however has been passing flatus. KUB showed no signs of ileus or obstruction. Normal gas pattern. Will continue bowel regimen. This AM nausea improved, but pt describes suprapubic pain. UA positive. Likely 2/2 UTI. Will treat with keflex. Plan Bowel regimen Zofran for nausea -Pantoprazole Keflex for UTI Hyponatremia Mild hyponatremia. Sodium 127 on 01/22. Likely secondary to hypovolemia. Will start gentle IV fluids at 75 mL's per hour with every 6 hour sodium checks. Patient with no neurologic symptoms at this time. 01/23, Na improved to 133. Will stop fluids and continue to monitor. Plan -Continue to monitor Hyperlipidemia Continue home statin Polymyositis Patient takes CellCept for her polymyositis. As well as hydroxychloroquine. Her CellCept was held 1 week prior, and will continue to be held 2 weeks after s urgery per patient's piano accompanist. Plan Hold CellCept Continue hydroxychloroquine Anxiety/depression History of anxiety/depression. Stable at this time. We will continue home Zoloft and hydroxyzine PRN. Status post left total hip replacement Patient underwent left total hip replacement on 01/21/2020. Now postop day 3. Orthopedics orthopedics team primary. DVT prophylaxis: Per orthopedic team Full code Case discussed with attending physician Dr. Alonzo
[2020-01-24] MEDS ORDERED: Cephalexin 250 MG CAP PO SCH (10:00)
[2020-01-24] MEDS ORDERED: Bisacodyl 10 MG SUPP PR PRN (10:06)
[2020-01-24] MEDS: Hydroxychloroquine Sulfate 200 MG TAB PO SCH ×2 (11:25→20:12)
[2020-01-24 12:55] LABS: Sodium 136 mmol/L (136-145)
[2020-01-24 19:12] LABS: Sodium 136 mmol/L (136-145)
[2020-01-24] MEDS: Cephalexin 250 MG CAP PO SCH (20:08)
[2020-01-24] MEDS: traZODone HCl 50 MG TAB PO SCH (20:08)
[2020-01-24] MEDS: Atorvastatin Calcium 10 MG TAB PO SCH (20:09)
[2020-01-25] MEDS: HYDROcodone/Acetaminophen 5/325 mg Tablet PO PRN ×2 (00:21→08:31)
[2020-01-25] MEDS: hydrOXYzine 25 MG TAB PO SCH ×3 (00:23→11:12)
[2020-01-25 01:05] LABS: Sodium 135 mmol/L (136-145)
[2020-01-25 05:26] LABS: #Basophils 0.1 thou/uL (0.0-0.2); #Eosinphils 0.3 thou/uL (0.0-0.7); #Lymphocytes 2.4 thou/uL (1.20-3.40); #Neutrophils 5.6 thou/uL (1.40-6.50); %Basophils 1.3 % (0.0-1.0); %Eosinophils 3.4 % (0.0-10.0); %Lymphocytes 25.4 % (21.0-51.0); %Monocytes 10.7 % (0.0-10.0); %Neutrophils 59.2 % (42.0-75.0); Hemoglobin 9.2 g/dL (12.0-16.0); Mean Corpuscular HGB CONC 33.8 g/dL (32.0-36.0); Mean Corpuscular Hemoglobin 34.6 pg (27.0-31.0); Platelet Count 222 thou/uL (130-400); RBC Distribution Width 10.6 % (11.5-14.5); Red Blood Cell (RBC) Count 2.67 mill/uL (4.20-5.40); White Blood Cell (WBC) Count 9.5 thou/uL (4.8-10.8)
[2020-01-25 05:50] LABS: Anion Gap 10 mmol/L (10-20); BUN (Urea Nitrogen) 10 mg/dL (9.8-20.1); Calc. Creatinine Clearance 87 mL/min (70-130); Calcium 7.8 mg/dL (7.8-10.44); Carbon Dioxide 26 mmol/L (23-31); Chloride 103 mmol/L (98-107); Estimated GFR-MDRD 87; Glucose 93 mg/dL (83-110); Potassium 3.7 mmol/L (3.5-5.1); Sodium 135 mmol/L (136-145)
[2020-01-25] MEDS: Cephalexin 250 MG CAP PO SCH (08:27)
[2020-01-25] MEDS: Aspirin 81 mg Enteric Coated Tablet PO SCH (08:27)
[2020-01-25] MEDS: Senokot S 8.6-50 MG TAB PO SCH (08:27)
[2020-01-25] MEDS: Ferrous Gluconate 324 MG TAB PO SCH (08:27)
[2020-01-25] MEDS: Multivitamin W/ Minerals 1 TAB PO SCH (08:27)
[2020-01-25 08:28] VITALS: BP 126/58; TEMP 98.1
[2020-01-25] MEDS: Hydroxychloroquine Sulfate 200 MG TAB PO SCH (08:28)
--- NOTE | 2020-01-25 09:55 | PRG ---
DATE OF SERVICE: 01/24/2020 SUBJECTIVE: Maddie is a 79-year-old female, postop day 3 from a left total hip arthroplasty. Her nausea is clearing. She has had a bowel movement and is feeling much better at this point. Pain is also slowly improving. She was able to ambulate 20 feet both in the morning and the afternoon. OBJECTIVE: VITAL SIGNS: Temperature 98.1, pulse 73, respiratory rate 18, O2 saturations 95% on room air, blood pressure 126/58. EXTREMITIES: Incision is clean. No erythema. She has little bit of swelling at her operative site, but no drainage. No malrotation or shortening. LABORATORY DATA: Hemoglobin and hematocrit of 9.5 and 27.4. IMPRESSION: 1. A 79-year-old female, postop day 3, left total hip arthroplasty. 2. Mild early ileus, resolved, but at this point, she still has not accomplished significant amount of ambulatory distance for a discharge does not meet criteria. 3. Asymptomatic postoperative hemorrhagic anemia. PLAN: 1. Continue to observe. Continue admission. Watch for bleeding as well as pain control. 2. Give consideration to discharge tomorrow, Monday, January 24. Job ID: [id number]
--- NOTE | 2020-01-25 11:06 | PDOC.BPN ---
- Brief Progress Note Encounter Date: 01/25/20 Encounter Time: 09:00 Ms. Handy was admitted for a left total hip replacement. On postop day 2 she developed malaise, low-grade fever to 100.1, mild lower abdominal pain and bladder fullness. A full work-up was done including a CBC, BMP, chest x-ray, lactic acid. Her chest x-ray showed mild atelectasis and incentive spirometry was encouraged. Patient had no difficulty breathing and her vital signs and SPO2 remained stable. She remained afebrile. Patient was found to have a UTI and was treated with oral Keflex. Patient's symptoms improved and she was determined to be ready and safe for discharge. She will finish her 5-day course of Keflex 500 mg twice daily and this has been called into her pharmacy. She has been instructed to follow-up with her primary care provider should she have any concerns or if her symptoms do not completely resolve. Patient seen and examined on day of discharge. Exam No acute distress, alert and oriented x4 Regular rate and rhythm, no murmurs rubs or gallops Lungs clear to auscultation bilaterally with no wheezes rales or rhonchi Abdomen soft, nontender with normal active bowel signs Lower extremities with no edema, pulses intact Vitals: 98.1, 73, 18, 95% on room air, 126/58 Case discussed with attending physician, Dr. Nye.
== END 2020-01-25 11:50 | disposition home or self-care (01) | DRG 470 ==
LOC: SURG A 01-21 08:26 → SJJU 01-21 13:53
PROVIDERS: ADMIT Orthopaedic Surgery; ATTEND Orthopaedic Surgery
PROC: 0SRB04A Replacement of Left Hip Joint with Ceramic on Polyethylene Synthetic Substitute, Uncemented, Open Approach (ICD-10-PCS; principal; 2020-01-21)
DX: M16.12 Unilateral primary osteoarthritis, left hip (principal); M33.20 Polymyositis, organ involvement unspecified; E87.1 Hypo-osmolality and hyponatremia; N39.0 Urinary tract infection, site not specified; K56.7 Ileus, unspecified; D62 Acute posthemorrhagic anemia; J98.11 Atelectasis; K21.9 Gastro-esophageal reflux disease without esophagitis; H04.123 Dry eye syndrome of bilateral lacrimal glands; G47.00 Insomnia, unspecified; E78.00 Pure hypercholesterolemia, unspecified; R32 Unspecified urinary incontinence; Z20.828 Contact with and (suspected) exposure to other viral communicable diseases; F41.9 Anxiety disorder, unspecified; F32.9 Major depressive disorder, single episode, unspecified; E78.5 Hyperlipidemia, unspecified; F17.210 Nicotine dependence, cigarettes, uncomplicated; Z79.899 Other long term (current) drug therapy; Z85.828 Personal history of other malignant neoplasm of skin; Z90.710 Acquired absence of both cervix and uterus; Z90.721 Acquired absence of ovaries, unilateral
CPT/HCPCS: 36415; 71045; 74018; 80048; 81001; 83605; 84295; 85025; 85027; 87086; J1100; J1885; J1956; J2001; J2250; J2405; J2704; J3010; J3370; J3490; Q0161; Q0163

== ENCOUNTER 2021-11-04 09:14 | Outpatient (CLI) | payer MEDICARE | END 2021-11-04 09:15 | disposition home or self-care (01) | LOC: SCSMRI 09:14 | PROVIDERS: ATTEND Anesthesiology Pain Medicine | DX: M47.26 Other spondylosis with radiculopathy, lumbar region (principal) | CPT/HCPCS: 72148 ==